=== PATIENT | female | born 1995 | race Caucasian/White ===

== ENCOUNTER → 2017-03-22 | Outpatient (CLI) | payer OTHER ==
[~2017-03-22] MED LIST: PRENTAB26 PO
== END | disposition home or self-care (01) ==
LOC: C.PAPS 14:46
PROVIDERS: ATTEND Obstetrics & Gynecology
DX: Z12.4 Encounter for screening for malignant neoplasm of cervix (principal); R87.613 High grade squamous intraepithelial lesion on cytologic smear of cervix (HGSIL)

== ENCOUNTER → 2017-04-18 | Outpatient (CLI) | payer OTHER | END | disposition home or self-care (01) | LOC: C.PATHSPEC 15:05 | PROVIDERS: ATTEND Obstetrics & Gynecology | DX: R87.613 High grade squamous intraepithelial lesion on cytologic smear of cervix (HGSIL) (principal) ==

== ENCOUNTER → 2017-04-19 | Outpatient (CLI) | payer OTHER | END | disposition home or self-care (01) | LOC: C.PAPS 15:04 | PROVIDERS: ATTEND Obstetrics & Gynecology | DX: R87.613 High grade squamous intraepithelial lesion on cytologic smear of cervix (HGSIL) (principal) ==

== ENCOUNTER → 2017-09-20 | Outpatient (CLI) | payer OTHER | END | disposition home or self-care (01) | LOC: C.PAPS 14:50 | PROVIDERS: ATTEND Obstetrics & Gynecology | DX: R87.612 Low grade squamous intraepithelial lesion on cytologic smear of cervix (LGSIL) (principal) ==

== ENCOUNTER 2017-10-06 17:04 | Emergency (ER) | payer OTHER ==
[~2017-10-06] VITALS: Ht 165.1 cm; Wt 91.4 kg
[2017-10-06 17:22] VITALS: Ht 165.1 cm; Wt 91.4 kg
[2017-10-06] MEDS ORDERED: ACETAMINOPHEN 500 MG TAB PO ONE (19:31)
[2017-10-06] MEDS ORDERED: ACETAMINOPHEN 500 MG TAB PO STA (19:34)
[2017-10-06] MEDS ORDERED: COUGH DROP (SUGAR FREE) LOZ 24 LOZ/1 BOX LOZ STA (20:11)
[2017-10-06] MEDS ORDERED: IBUPROFEN 600 MG TAB PO STA (20:11)
[2017-10-06 20:17] LABS: INFLUENZA B ANTIGEN Neg for Influ B (NEG)
[2017-10-06] MEDS ORDERED: IBUPROFEN 800 MG TAB ONE (20:23)
--- NOTE | 2017-10-06 20:29 | EMERGENCY ROOM VISIT NOTE ---
History Report prepared by Juliet: Bernadette Santana Under the Supervision of: Dr. Ahmet Bianchi M.D. First contact with patient: 19:35 Chief Complaint: FLU LIKE SX Stated Complaint: COUGH, FEVER, ACHES, CHILLS History of Present Illness The patient is a 22 year old female with no past medical history who presents to the ED with a cc of worsening flu-like symptoms beginning 6 days ago. The patient notes that she took DayQuil, NyQuil, and Ibuprofen with a little relief. Positive body aches, fever, and productive cough. Negative recent travel, recent use of antibiotics, and getting the flu shot this year. Source of History: patient Onset: 6 days ago Position: other (global) Quality: other (flu-like) Timing: worsening Modifying Factors (Relieving): ibuprofen, other (DayQuil, NyQuil) Associated Symptoms: + fevers, + cough (productive) Note: The patient complains of body aches. Review of Systems See HPI for pertinent positives and negatives. A total of ten systems were reviewed and were otherwise negative. Past Medical & Surgical Medical Problems: (1) No Known Active Medical Problems Family History No pertinent family history Social History Smoking Status: Never Smoker Marital Status: single Housing Status: lives with friends Occupation Status: employed Current/Historical Medications Scheduled Control Pills ( Control Pills), 1 TAB PO DAILY Pevhwsphirlmynlp-Komsbryfmq-Zx (Vicks Nyquil Cold & Flu), 1 DOSE PO HS Scheduled PRN Dextromethorphan-Phenylephrine (Vicks Dayquil Cold & Flu), 1 DOSE PO BID PRN for FLU SYMPTOMS Allergies Coded Allergies: Penicillins (Verified Allergy, Unknown, HIVES, 01/29/14) Physical Exam Vital Signs Date Time Temp Pulse Resp B/P (MAP) Pulse Ox O2 Delivery O2 Flow Rate FiO2 10/06/17 20:57 38.9 108 18 104/64 96 10/06/17 19:41 39.6 10/06/17 17:22 39.4 127 18 134/69 96 Room Air Physical Exam GENERAL: Awake, alert, well-appearing, NAD HENT: Normocephalic, atraumatic. EYES: Normal conjunctiva. Sclera non-icteric. NECK: Supple. No nuchal rigidity. FROM. No signs of meningisms. RESPIRATORY: CTAB, no rhonchi, wheezing, crackles CARDIAC: Tachycardic rate, regular rhythm, no MRG ABDOMEN: Soft, NTND, BS+ MSK: No chest wall TTP, no LE edema NEURO: GCS 15, CN 2-12 intact, moves all 4s on command SKIN: No rash or jaundice noted. Medical Decision & Procedures ER Provider Diagnostic Interpretation: Radiology results as stated below per my review and radiologist interpretation: CHEST ONE VIEW PORTABLE CLINICAL HISTORY: Cough. Fever. COMPARISON STUDY: No previous studies for comparison. FINDINGS: Lung volumes are normal. The lungs are clear. No pneumothorax or pleural effusion is noted. Pulmonary vascularity is normal. Cardiac size is normal. Mediastinal contours are unremarkable. IMPRESSION: No acute cardiopulmonary findings. Electronically signed by: Yosef Esquivel M.D. 10/06/2017 8:26 PM Dictated Date/Time: 10/06/2017 8:25 PM Laboratory Results Test 10/06/17 00:00 Influenza Type A Antigen POS for Influ A (NEG) Influenza Type B Antigen Neg for Influ B (NEG) Laboratory results reviewed by me Medications Administered Medications (Trade) Dose Ordered Sig/Rod Route Start Time Stop Time Status Last Admin Dose Admin Acetaminophen (Tylenol Tab) 1,000 mg STK-MED ONCE PO 10/06/17 19:31 10/06/17 19:32 DC 10/06/17 19:32 1,000 MG Menthol (Nice Iram) 1 iram NOW STAT IRAM 10/06/17 20:11 10/06/17 20:13 DC 10/06/17 20:23 1 IRAM Ibuprofen (Motrin Tab) 800 mg STK-MED ONCE .ROUTE 10/06/17 20:23 10/06/17 20:24 DC 10/06/17 20:25 800 MG Oseltamivir Phosphate (Tamiflu Cap) 75 mg NOW STAT PO 10/06/17 20:38 10/06/17 20:44 DC 10/06/17 20:43 75 MG ED Course 2003: The patient was evaluated in room B3B. A complete history and physical exam was performed. 2047: I reevaluated the patient. Discussed results and discharge instructions: She verbalized understanding and agreement. The patient is ready for discharge. Medical Decision The patient is a 22 year old female with no past medical history who presents to the ED with a cc of worsening flu-like symptoms beginning 6 days ago. Differential diagnosis: Etiologies such as viral syndrome, otitis, pharyngitis, pneumonia, influenza, meningitis, urinary tract infection, sepsis, bacteremia, as well as others were entertained. Patient was seen and evaluated the bedside. Patient has had some worsening flulike symptoms 6 days. Patient is fairly well-appearing. Patient does have some mild tachycardia. Given the patient's constellation of symptoms is most likely related to infection in nature. Given the patient has had a cough she did have chest x-ray completed along with a flu swab. Patient has flu positive. Will not treat given the prolonged duration of her symptoms. Patient was told to continue Motrin and Tylenol as well as liberal hydration. Chest x-ray was clear. Patient was deemed suitable for outpatient follow-up and treatment at this time. Patient was given strict follow-up, discharge, and return precautions. All questions were answered. Patient was deemed suitable for outpatient follow-up at this time. Patient agreed with the plan of care and was safely discharged home. The chart was completed utilizing [employer] voice recognition software. Grammatical errors, random word insertions, pronoun errors, and incomplete sentences are an occasional consequence of this system due to software limitations, ambient noise, and hardware issues. Any formal questions or concerns about the content, text, or information contained within the body of this dictation should be directly addressed to the physician for clarification. Medication Reconcilliation Current Medication List: was personally reviewed by me Blood Pressure Screening Patient's blood pressure: Normal blood pressure Blood pressure disposition: Did not require urgent referral Impression Primary Impression: Influenza A Additional Impressions: Dehydration Fever Scribe Attestation The scribe's documentation has been prepared under my direction and personally reviewed by me in its entirety. I confirm that the note above accurately reflects all work, treatment, procedures, and medical decision making performed by me. Departure Information Dispostion Home / Self-Care Referrals No Doctor, Assigned (PCP) Forms HOME CARE DOCUMENTATION FORM, IMPORTANT VISIT INFORMATION Patient Instructions ED Fever Control, ED Flu, My [facility] Additional Instructions Please return to the emergency department if you have worsening or recurrent symptoms not amenable to at-home treatment. Please call for a follow-up appointment with her primary care physician. Please take your medications as prescribed. If you have other concerns and/or complaints please feel free to also call your primary care physician's office or return the ED for further evaluation, management, and treatment. You may take 600 mg Ibuprofen every 6 hours as needed for pain with food for no more than 2 consecutive days. You may take tylenol 1000 mg every 6 hours as needed for pain. You may take motrin and tylenol separately or at the same time. Take your medications as prescribed. You have been examined and treated today on an emergency basis only. This is not a substitute for, or an effort to provide, complete comprehensive medical care. It is impossible to recognize and treat all injuries or illnesses in a single emergency department visit. It is therefore important that you follow up closely with [facility], your PCP, and/or your specialist(s). Call as soon as possible for an appointment. Thank you for your time and consideration. I look forward to speaking with you again soon. Please don't hesitate to call us if you have any questions. Problem Qualifiers Additional Impressions: Fever Fever type: unspecified Qualified Codes: R50.9 - Fever, unspecified
[2017-10-06] MEDS ORDERED: OSELTAMIVIR PHOSPHATE 75 MG CAP PO STA (20:38)
[2017-10-06] MEDS ORDERED: DEXT1LIQ36 PO (20:42)
[2017-10-06] MEDS ORDERED: DEXT1LIQ58 PO (20:42)
[2017-10-06] MEDS ORDERED: BCPILLS PO (20:44)
[2017-10-06 20:57] VITALS: BP 104/64; PULSE 108; TEMP 38.9; O2SAT 96
== END 2017-10-06 20:58 | disposition home or self-care (01) ==
LOC: C.EDB 17:05
DX: J11.1 Influenza due to unidentified influenza virus with other respiratory manifestations (principal); E86.0 Dehydration; R50.9 Fever, unspecified; R00.0 Tachycardia, unspecified; Z79.3 Long term (current) use of hormonal contraceptives

== ENCOUNTER → 2017-11-15 | Outpatient (CLI) | payer OTHER ==
[~2017-11-15] MED LIST changes: +BCPILLS PO; +DEXT1LIQ36 PO; +DEXT1LIQ58 PO; -PRENTAB26 PO
== END | disposition home or self-care (01) ==
LOC: C.PAPS 09:13
PROVIDERS: ATTEND Obstetrics & Gynecology
DX: R87.612 Low grade squamous intraepithelial lesion on cytologic smear of cervix (LGSIL) (principal); R87.610 Atypical squamous cells of undetermined significance on cytologic smear of cervix (ASC-US)